=== PATIENT | female | born 1955 | race Caucasian/White ===

== ENCOUNTER → 2016-08-07 | Outpatient (CLI) | payer OTHER ==
[~2016-08-07] MED LIST: AMLO5TAB4 PO; CHOL200012 PO; CLIN150C2 PO; CYCL-259 PO; DIAZ10TA PO; ELAVIL PO; FENO145T32 PO; LEVO50TA PO; MELO15TA6 PO; METH500T7 PO; METH750T87 PO; OXYC10TA6 PO; OXYC5TAB3 PO; SIMV40TA PO; TRAM50TA2 PO
== END | disposition home or self-care (01) ==
LOC: STAR 08:45
PROVIDERS: ATTEND Orthopaedic Surgery
DX: Z01.818 Encounter for other preprocedural examination (principal); M19.011 Primary osteoarthritis, right shoulder; R79.1 Abnormal coagulation profile
CPT/HCPCS: 36415; 85025; 85610; 85730; 93005

== ENCOUNTER 2016-08-14 05:09 | Inpatient (IN) | payer OTHER ==
[2016-08-13] MEDS: FENTANYL PF 100 MCG/2ML IV PRN (09:26)
[~2016-08-14] VITALS: Ht 160 cm; Wt 72.0 kg
[2016-08-14] MEDS ORDERED: VANCOMYCIN PER PHARMACY MC STA (05:46)
[2016-08-14] MEDS ORDERED: LACTATED RINGERS 1,000 ML IV SCH (05:56)
[2016-08-14 05:57] VITALS: BP 121/73
[2016-08-14] MEDS ORDERED: VANCOMYCIN 1,200 MG in SODIUM CHLORIDE 0.9% 250 ML IV ONE (06:00)
[2016-08-14] MEDS ORDERED: BUPIVACAINE/PF 0.5% ONE (06:15)
[2016-08-14 06:16] VITALS: BP 125/83
[2016-08-14] MEDS ORDERED: CLINDAMYCIN 150 MG/ML, 6ML ONE (06:24)
[2016-08-14] MEDS ORDERED: FENTANYL PF 250 MCG/5ML ONE (06:25)
[2016-08-14] MEDS ORDERED: MIDAZOLAM 1 MG/ML, 2ML ONE (06:25)
[2016-08-14] MEDS ORDERED: SODIUM CHLORIDE 0.9% IVPB ONE (06:30)
[2016-08-14] MEDS ORDERED: DESMOPRESSIN IVPB ONE (06:30)
[2016-08-14] MEDS: D5%-0.45% NACL 1,000 ML IV SCH ×3 (06:49→23:26)
[2016-08-14] MEDS ORDERED: PROPOFOL 10 MG/ML, 20ML ONE (06:50)
[2016-08-14] MEDS ORDERED: GLYCOPYRROLATE 0.2MG/1ML ONE (06:50)
[2016-08-14] MEDS ORDERED: NEOSTIGMINE 1 MG/ML, 10ML ONE (06:50)
[2016-08-14] MEDS ORDERED: ONDANSETRON 2MG/ML, 2ML ONE (06:50)
[2016-08-14] MEDS ORDERED: ROCURONIUM 10 MG/ML ONE (06:50)
[2016-08-14] MEDS ORDERED: EPHEDRINE 50 MG/ML, 1ML ONE (06:50)
[2016-08-14] MEDS ORDERED: METOCLOPRAMIDE 5 MG/ML, 2ML ONE (06:50)
[2016-08-14] MEDS ORDERED: DEXAMETHASONE 4 MG/ML, 1ML ONE (06:50)
[2016-08-14] MEDS ORDERED: PHENYLEPHRINE 10 MG/ML ONE (06:50)
[2016-08-14] MEDS ORDERED: MAGNESIUM HYDROXIDE 8%, 30ML UDC PO PRN (07:00)
[2016-08-14] MEDS ORDERED: ONDANSETRON 2MG/ML, 2ML IV PRN (07:00)
[2016-08-14] MEDS ORDERED: SENNA/DOCUSATE TABLET PO PRN (07:00)
[2016-08-14] MEDS ORDERED: ALUMINUM/MAG/SIMETHICONE 30 ML UDC PO PRN (07:00)
[2016-08-14] MEDS ORDERED: ACETAMINOPHEN 325 MG TABLET PO PRN ×2 (07:00→09:00)
[2016-08-14] MEDS ORDERED: BISACODYL 10 MG SUPP PR PRN (07:00)
[2016-08-14] MEDS: OXYcodone 5 MG/5 ML ORAL.SOL UDC PO SCH ×4 (07:00→21:48)
[2016-08-14] MEDS ORDERED: PROMETHAZINE 25 MG/ML, 1ML IV PRN (09:00)
[2016-08-14] MEDS ORDERED: OXYcodone 5 MG/5 ML ORAL.SOL UDC PO PRN (09:00)
[2016-08-14] MEDS ORDERED: HYDROmorphone 1 MG/ML, 1ML IV PRN (09:00)
[2016-08-14] MEDS ORDERED: OXYcodone 5 MG/5 ML ORAL.SOL UDC ONE (09:04)
[2016-08-14] MEDS ORDERED: FENTANYL PF 100 MCG/2ML ONE (09:04)
[2016-08-14] MEDS ORDERED: KETOROLAC 30 MG/1 ML ONE (09:04)
[2016-08-14] MEDS: FENTANYL PF 100 MCG/2ML IV PRN (09:08)
[2016-08-14] MEDS ORDERED: ACETAMINOPHEN 325 MG TABLET ONE (09:28)
[2016-08-14] MEDS ORDERED: ACETAMINOPHEN 650 MG/20.3 ML UDC ONE (09:28)
[2016-08-14] MEDS ORDERED: HYDROmorphone 2 MG/ML, 1ML ONE (09:29)
[2016-08-14] MEDS ORDERED: KETOROLAC 30 MG/1 ML IVPush SCH (10:00)
[2016-08-14 10:30] VITALS: BP 90/57
[2016-08-14] MEDS ORDERED: KETOROLAC 30 MG/1 ML IVPush ONE (10:48)
[2016-08-14] MEDS ORDERED: LEVOTHYROXINE MC SCH (11:00)
[2016-08-14] MEDS: TRAMADOL MC SCH ×3 (11:30→21:45)
[2016-08-14] MEDS: DOCUSATE 100 MG CAPSULE PO SCH ×2 (12:00→21:48)
[2016-08-14 14:49] VITALS: BP 98/56
[2016-08-14] MEDS ORDERED: VANCOMYCIN PMX 1GM/200ML 200 ML IVPB ONE (18:00)
[2016-08-14] MEDS: morphine SULFATE 10 MG/ML, 1ML IV PRN (18:44)
[2016-08-14 18:45] VITALS: BP 112/60
[2016-08-14] MEDS ORDERED: LEVOTHYROXINE 50 MCG TABLET PO SCH (21:00)
[2016-08-14] MEDS ORDERED: AMLODIPINE 5 MG TABLET PO SCH (21:00)
[2016-08-14] MEDS ORDERED: CHOLECALCIFEROL 1,000 UNIT TABLET PO SCH (21:00)
[2016-08-14] MEDS ORDERED: FENOFIBRATE 145 MG TABLET PO SCH (21:00)
[2016-08-14] MEDS ORDERED: SIMVASTATIN 40 MG TABLET PO SCH (21:00)
[2016-08-15] VITALS: BP 103/64
[2016-08-15] MEDS: OXYcodone 5 MG/5 ML ORAL.SOL UDC PO SCH ×3 (01:50→09:30)
[2016-08-15] MEDS: morphine SULFATE 10 MG/ML, 1ML IV PRN ×5 (01:53→07:15)
[2016-08-15 04:26] VITALS: BP 101/64
[2016-08-15] MEDS: TRAMADOL MC SCH (05:45)
[2016-08-15] MEDS: D5%-0.45% NACL 1,000 ML IV SCH (07:16)
[2016-08-15 07:32] VITALS: BP 109/70
[2016-08-15] MEDS ORDERED: FENTANYL PF 100 MCG/2ML ONE (08:33)
[2016-08-15] MEDS ORDERED: BUPIVACAINE/PF 0.5% ONE (08:33)
[2016-08-15] MEDS: DOCUSATE 100 MG CAPSULE PO SCH (10:00)
== END 2016-08-15 14:13 | disposition home or self-care (01) | DRG 483 ==
LOC: ORIP 05:09 → 4NOR 10:26 → DCLOUNGE 08-15 13:13
PROVIDERS: ADMIT Orthopaedic Surgery; ATTEND Orthopaedic Surgery
PROC: 3E0T3BZ Introduction of Anesthetic Agent into Peripheral Nerves and Plexi, Percutaneous Approach (ICD-10-PCS; 2016-08-14)
PROC: 0RRJ0JZ Replacement of Right Shoulder Joint with Synthetic Substitute, Open Approach (ICD-10-PCS; principal; 2016-08-14 07:00)
DX: M19.011 Primary osteoarthritis, right shoulder (principal); M65.9 Synovitis and tenosynovitis, unspecified; I10 Essential (primary) hypertension; E03.9 Hypothyroidism, unspecified; E78.00 Pure hypercholesterolemia, unspecified; Z96.652 Presence of left artificial knee joint; Z88.6 Allergy status to analgesic agent; Z88.5 Allergy status to narcotic agent; Z88.0 Allergy status to penicillin; Z88.2 Allergy status to sulfonamides; Z79.899 Other long term (current) drug therapy; Z98.1 Arthrodesis status; Z90.89 Acquired absence of other organs; Z90.49 Acquired absence of other specified parts of digestive tract; Z82.61 Family history of arthritis; Z88.1 Allergy status to other antibiotic agents
CPT/HCPCS: 36415; 86850; 86900; C1713; C1776; J1100; J1170; J1885; J2250; J2405; J2597; J2704; J2710; J3010; J3370; J3490; J2270; J2370; J2765; J7050; J7120; P9035

== ENCOUNTER → 2017-01-13 | Outpatient (CLI) | payer OTHER ==
[~2017-01-13] MED LIST changes: -CHOL200012 PO; +CHOL200074 PO
== END | disposition home or self-care (01) ==
LOC: CFH 12:17
PROVIDERS: ATTEND Registered Nurse Registered Nurse First Assistant
DX: M51.26 Other intervertebral disc displacement, lumbar region (principal); M51.27 Other intervertebral disc displacement, lumbosacral region; M48.061 Spinal stenosis, lumbar region without neurogenic claudication; M48.07 Spinal stenosis, lumbosacral region; Z98.1 Arthrodesis status; Z98.890 Other specified postprocedural states
CPT/HCPCS: 72148

== ENCOUNTER → 2018-06-14 | Outpatient (CLI) | payer OTHER ==
[2018-06-14 09:57] LABS: BASOPHILS # (AUTO) 0.05 x10^3/uL (0-0.1); BASOPHILS % (AUTO) 1 % (0-1); EOSINOPHILS # (AUTO) 0.18 x10^3/uL (0-0.4); EOSINOPHILS % (AUTO) 3 % (1-7); LYMPHOCYTES % (AUTO) 36 % (22-44); MD NO; MEAN CORPUSCULAR HEMOGLOBIN 30.6 pg (27.0-34.8); MEAN CORPUSCULAR VOLUME 92.8 fL (80-100); MEAN PLATELET VOLUME 6.8 fL (7.4-10.4); MONOCYTES # (AUTO) 0.55 x10^3/uL (0.2-0.8); MONOCYTES % (AUTO) 9 % (2-9); NEUTROPHILS # (AUTO) 3.09 x10^3/uL (1.8-6.8); NEUTROPHILS % (AUTO) 51 % (42-75); PLATELET COUNT 437 x10^3/uL (130-400); RED BLOOD COUNT 4.21 x10^6/uL (3.82-5.3); RED CELL DISTRIBUTION WIDTH 13.5 % (9.6-15.2)
[2018-06-14 10:03] LABS: PARTIAL THROMBOPLASTIN TIME 30 Seconds (25-31)
[2018-06-14 11:06] LABS: ADP CARTRIDGE 122 SECONDS (64-123); PLATELET (PFA) 437 x10^3/uL (130-400)
== END | disposition home or self-care (01) ==
LOC: LAB 09:36
PROVIDERS: ATTEND Internal Medicine Hematology & Oncology
DX: D69.9 Hemorrhagic condition, unspecified (principal); R79.1 Abnormal coagulation profile; Z88.6 Allergy status to analgesic agent; Z88.0 Allergy status to penicillin; Z88.2 Allergy status to sulfonamides; Z88.8 Allergy status to other drugs, medicaments and biological substances
CPT/HCPCS: 36415; 85014; 85025; 85049; 85240; 85245; 85246; 85576; 85730

== ENCOUNTER → 2018-06-25 | Outpatient (CLI) | payer OTHER ==
[~2018-06-25] MED LIST changes: +COLL1POW2 PO; +MAGNESIUM PO; +SUMA50TA3 PO
[2018-06-25 11:54] LABS: BASOPHILS # (AUTO) 0.04 x10^3/uL (0-0.1); BASOPHILS % (AUTO) 1 % (0-1); EOSINOPHILS # (AUTO) 0.14 x10^3/uL (0-0.4); EOSINOPHILS % (AUTO) 3 % (1-7); LYMPHOCYTES # (AUTO) 1.73 x10^3/uL (1-3.4); LYMPHOCYTES % (AUTO) 30 % (22-44); MD NO; MEAN CORPUSCULAR HEMOGLOBIN 30.9 pg (27.0-34.8); MEAN CORPUSCULAR HGB CONC 33.5 g/dL (32.4-35.8); MEAN CORPUSCULAR VOLUME 92.1 fL (80-100); MEAN PLATELET VOLUME 6.9 fL (7.4-10.4); MONOCYTES # (AUTO) 0.39 x10^3/uL (0.2-0.8); MONOCYTES % (AUTO) 7 % (2-9); NEUTROPHILS # (AUTO) 3.43 x10^3/uL (1.8-6.8); NEUTROPHILS % (AUTO) 60 % (42-75); PLATELET COUNT 477 x10^3/uL (130-400); RED BLOOD COUNT 4.48 x10^6/uL (3.82-5.3); RED CELL DISTRIBUTION WIDTH 13.3 % (9.6-15.2)
[2018-06-25 12:04] LABS: INTERNATIONAL NORMALIZED RATIO 0.97 (0.93-1.1); PROTHROMBIN TIME 10.2 Seconds (9.6-11.5)
[2018-06-25 12:05] LABS: ALANINE AMINOTRANSFERASE 49 U/L (12-78); ANION GAP 4 mmol/L (5-15); CALCIUM 10.1 mg/dL (8.5-10.1); CHLORIDE 105 mmol/L (98-107); CREATININE 0.74 mg/dL (0.55-1.02)
[2018-06-25 12:08] LABS: ALKALINE PHOSPHATASE 134 U/L (45-117); BILIRUBIN,TOTAL 0.4 mg/dL (0.2-1.0); TOTAL PROTEIN 7.7 g/dL (6.4-8.2)
[2018-06-25 12:30] LABS: HEMOGLOBIN A1C 5.6 % (4.2-6.3)
== END | disposition home or self-care (01) ==
LOC: STAR 10:50
PROVIDERS: ATTEND Orthopaedic Surgery
DX: Z01.818 Encounter for other preprocedural examination (principal); R00.0 Tachycardia, unspecified; M16.11 Unilateral primary osteoarthritis, right hip; M70.62 Trochanteric bursitis, left hip; M51.36 Other intervertebral disc degeneration, lumbar region; M70.61 Trochanteric bursitis, right hip; M54.16 Radiculopathy, lumbar region; Z96.611 Presence of right artificial shoulder joint; Z96.669 Presence of unspecified artificial ankle joint
CPT/HCPCS: 36415; 80053; 83036; 85025; 85610; 85730; 87081; 93005

== ENCOUNTER 2018-07-09 06:32 | Inpatient (IN) | payer OTHER ==
[~2018-07-09] VITALS: Ht 160 cm; Wt 62.0 kg
[2018-07-09] MEDS: NS + 20MEQ KCL 1,000 ML IV SCH ×3 (06:50→20:50)
[2018-07-09] MEDS ORDERED: ONDANSETRON 2MG/ML, 2ML IV PRN ×2 (07:00→08:30)
[2018-07-09] MEDS ORDERED: SENNA/DOCUSATE TABLET PO PRN (07:00)
[2018-07-09] MEDS ORDERED: CYCLOBENZAPRINE 10 MG TABLET PO PRN (07:00)
[2018-07-09] MEDS ORDERED: ZOLPIDEM 5MG TABLET PO PRN (07:00)
[2018-07-09] MEDS ORDERED: DIPHENHYDRAMINE 50 MG CAPSULE PO PRN (07:00)
[2018-07-09] MEDS ORDERED: ACETAMINOPHEN 650 MG/20.3 ML UDC PO PRN (07:00)
[2018-07-09] MEDS ORDERED: SUMATRIPTAN 50 MG TABLET PO SCH (07:00)
[2018-07-09] MEDS ORDERED: SCOPOLAMINE PATCH, 1.5MG PATCH.TD72 TD ONE (07:00)
[2018-07-09] MEDS ORDERED: ONDANSETRON 4 MG TABLET PO PRN (07:00)
[2018-07-09] MEDS ORDERED: HYDROcodone/APAP 5/325 TABLET PO PRN (07:00)
[2018-07-09] MEDS ORDERED: MAGNESIUM HYDROXIDE 8%, 30ML UDC PO PRN (07:00)
[2018-07-09] MEDS ORDERED: BISACODYL 10 MG SUPP PR PRN (07:00)
[2018-07-09] MEDS ORDERED: LACTATED RINGERS 1,000 ML IV SCH (07:03)
[2018-07-09] MEDS ORDERED: FENTANYL PF 100 MCG/2ML ONE ×2 (07:29→10:36)
[2018-07-09] MEDS ORDERED: MIDAZOLAM 1 MG/ML, 2ML ONE (07:29)
[2018-07-09] MEDS ORDERED: VANCOMYCIN PER PHARMACY MC PRN (07:30)
[2018-07-09] MEDS ORDERED: SODIUM CHLORIDE 0.9% IV ONE (07:30)
[2018-07-09] MEDS ORDERED: ACETAMINOPHEN 500 MG TABLET PO ONE (07:30)
[2018-07-09] MEDS ORDERED: DESMOPRESSIN IV ONE (07:30)
[2018-07-09] MEDS ORDERED: GABAPENTIN 300 MG CAPSULE PO ONE (07:30)
[2018-07-09] MEDS ORDERED: VANCOMYCIN PMX 1GM/200ML 200 ML IV ONE (08:00)
[2018-07-09] MEDS ORDERED: hydrALAzine 20 MG/ML, 1ML IV PRN (08:30)
[2018-07-09] MEDS ORDERED: OXYcodone 5 MG/5 ML ORAL.SOL UDC PO PRN (08:30)
[2018-07-09] MEDS ORDERED: LORazepam 2 MG/ML, 1ML IVPush PRN (08:30)
[2018-07-09] MEDS ORDERED: METOCLOPRAMIDE 5 MG/ML, 2ML IV PRN (08:30)
[2018-07-09] MEDS ORDERED: LABETALOL 5MG/ML, 20ML IV PRN (08:30)
[2018-07-09] MEDS ORDERED: MORPHINE SULFATE 4 MG/ML, 1ML IVPush PRN (08:30)
[2018-07-09] MEDS ORDERED: MEPERIDINE/PF 25MG/0.5ML IVPush PRN (08:30)
[2018-07-09] MEDS ORDERED: ROPIvacaine/PF 0.5%, 30 ML ONE (08:33)
[2018-07-09 08:41] VITALS: BP 110/75
[2018-07-09 08:54] VITALS: BP 115/75
[2018-07-09] MEDS ORDERED: DOCUSATE 100 MG CAPSULE PO SCH (09:00)
[2018-07-09 09:01] VITALS: BP 113/74
[2018-07-09] MEDS ORDERED: ONDANSETRON 2MG/ML, 2ML ONE (09:09)
[2018-07-09] MEDS ORDERED: NEOSTIGMINE 1 MG/ML, 10ML ONE (09:09)
[2018-07-09] MEDS ORDERED: GLYCOPYRROLATE 0.2MG/1ML, 5ML ONE (09:09)
[2018-07-09] MEDS ORDERED: DEXAMETHASONE 4 MG/ML, 1ML ONE (09:09)
[2018-07-09] MEDS ORDERED: METOCLOPRAMIDE 5 MG/ML, 2ML ONE (09:09)
[2018-07-09] MEDS ORDERED: SUCCINYLCHOLINE 20 MG/ML, 10ML ONE (09:09)
[2018-07-09] MEDS ORDERED: PROPOFOL 10 MG/ML, 20ML ONE (09:09)
[2018-07-09] MEDS ORDERED: ROCURONIUM 10 MG/ML,10ML ONE (09:09)
[2018-07-09] MEDS: FENTANYL PF 100 MCG/2ML IV PRN ×2 (10:38→10:50)
[2018-07-09] MEDS: HYDROmorphone 2 MG/ML, 1ML IVPush PRN ×4 (10:44→11:30)
[2018-07-09] MEDS ORDERED: TRANEXAMIC ACID 1,000 MG in SODIUM CHLORIDE 0.9% 100 ML IV ONE (11:00)
[2018-07-09 12:24] VITALS: BP 108/68
[2018-07-09] MEDS ORDERED: DOCUSATE 100 MG CAPSULE ONE (12:44)
[2018-07-09] MEDS: OXYcodone IR 5MG TABLET PO PRN ×3 (12:47→20:49)
[2018-07-09] MEDS ORDERED: VANCOMYCIN 1,200 MG in SODIUM CHLORIDE 0.9% 250 ML IV ONE (13:00)
[2018-07-09] MEDS ORDERED: PHARMACOKINETIC MONITORING MC PRN (13:00)
[2018-07-09] MEDS ORDERED: PHARMACOKINETIC CONSULTATION MC ONE (13:00)
[2018-07-09] MEDS: CEFAZOLIN PMX 2GM/50ML 50 ML IVPB SCH ×2 (13:36→21:51)
[2018-07-09] MEDS ORDERED: ASPIRIN 81 MG TABLET EC PO SCH (18:00)
[2018-07-09 19:35] VITALS: BP 105/64
[2018-07-09] MEDS ORDERED: AMLODIPINE 5 MG TABLET PO SCH (21:00)
[2018-07-09] MEDS ORDERED: SIMVASTATIN 40 MG TABLET PO SCH (21:00)
[2018-07-09] MEDS ORDERED: FENOFIBRATE 145 MG TABLET PO SCH (21:00)
[2018-07-09] MEDS ORDERED: LEVOTHYROXINE 50 MCG TABLET PO SCH (21:00)
[2018-07-09] MEDS ORDERED: LEVOTHYROXINE 75 MCG TABLET ONE (21:42)
[2018-07-09] MEDS: DOCUSATE 100 MG CAPSULE PO SCH (21:49)
[2018-07-10 00:30] VITALS: BP 105/67
[2018-07-10] MEDS: OXYcodone IR 5MG TABLET PO PRN ×3 (01:02→09:04)
[2018-07-10 04:40] VITALS: BP 113/66
[2018-07-10] MEDS ORDERED: DEXAMETHASONE 4 MG/ML, 1ML IVPush SCH (06:00)
[2018-07-10 08:56] VITALS: BP 120/63
[2018-07-10] MEDS: DOCUSATE 100 MG CAPSULE PO SCH (09:03)
[2018-07-10 10:53] VITALS: BP 106/72
== END 2018-07-10 11:10 | disposition home or self-care (01) | DRG 470 ==
LOC: ORIP 06:34 → 4NOR 12:10
PROVIDERS: ADMIT Orthopaedic Surgery; ATTEND Orthopaedic Surgery
PROC: 30233R1 Transfusion of Nonautologous Platelets into Peripheral Vein, Percutaneous Approach (ICD-10-PCS; 2018-07-09)
PROC: 0SR906A Replacement of Right Hip Joint with Oxidized Zirconium on Polyethylene Synthetic Substitute, Uncemented, Open Approach (ICD-10-PCS; principal; 2018-07-09 09:30)
DX: M16.11 Unilateral primary osteoarthritis, right hip (principal); I10 Essential (primary) hypertension; E78.5 Hyperlipidemia, unspecified; E03.9 Hypothyroidism, unspecified; G43.909 Migraine, unspecified, not intractable, without status migrainosus; Z88.0 Allergy status to penicillin; Z88.2 Allergy status to sulfonamides; Z88.6 Allergy status to analgesic agent; Z91.040 Latex allergy status
CPT/HCPCS: 36415; 72170; 73501; 76000; J3490; 85014; 85018; 86850; 86900; C1713; G0378; J0690; J1100; J1170; J2250; J2405; J2597; J2704; J2710; J2795; J3010; J3480; C1776; J0330; J2765; P9035

== ENCOUNTER 2018-08-04 14:05 | Emergency (ER) | payer OTHER ==
[~2018-08-04] VITALS: Ht 157.5 cm; Wt 57.2 kg
[2018-08-04] MEDS ORDERED: ONDANSETRON 2MG/ML, 2ML ONE (14:08)
[2018-08-04] MEDS ORDERED: HYDROmorphone 1 MG/ML, 1ML VIAL ONE (14:08)
--- NOTE | 2018-08-04 14:20 | NUR ---
PT BIB [facility] FOR RIGHT HIP PAIN AFTER SHE TURNED AND THEN FELL TO THE GROUND. PT HAD A RIGHT HIP REPLACEMENT 1 MONTH AGO. PT PLACED IN ROOM AND PLACED ON BP, CARDIAC AND CONT. PULSE OXIMETER. RIGHT PEDAL PULSE 2+ AND STRONG. PT WITH DEFORMITY TO RIGHT HIP. PT CRYING AND IN DISTRESS. MD AT BEDSIDE.
--- NOTE | 2018-08-04 14:25 | NUR ---
PT TAKEN TO RADIOLOGY
[2018-08-04] MEDS ORDERED: ONDANSETRON 2MG/ML, 2ML IVPush ONE (14:30)
[2018-08-04] MEDS ORDERED: HYDROmorphone 1 MG/ML, 1ML INJ IVPush PRN (14:30)
--- NOTE | 2018-08-04 14:43 | NUR ---
LATE ENTRY: CONSENT SIGNED FOR RIGHT REDUCTION BY PROCEDURAL SEDATION.
[2018-08-04] MEDS ORDERED: FENTANYL PF 100 MCG/2ML ONE (14:47)
[2018-08-04] MEDS ORDERED: ETOMIDATE 20 MG/10 ML ONE (14:47)
--- NOTE | 2018-08-04 14:58 | NUR ---
2NDTIME OUT FOR PROCEDURAL SEDATION DOCUMENTED WITH MD AND RN.
[2018-08-04] MEDS ORDERED: FENTANYL PF 100 MCG/2ML IVPush ONE (15:00)
[2018-08-04] MEDS ORDERED: ETOMIDATE 20 MG/10 ML IVPush ONE (15:00)
--- NOTE | 2018-08-04 15:00 | NUR ---
SEE PROCEDURAL SEDATION NOTES.
--- NOTE | 2018-08-04 15:20 | NUR ---
PT ALERT AND TALKING WITH FAMILY.
--- NOTE | 2018-08-04 16:01 | NUR ---
PT ALERT AND ORIENTED. AWAITING ORTHOPEDIST TO CALL BACK.
[2018-08-04 16:05] VITALS: BP 110/66
--- NOTE | 2018-08-04 16:06 | NUR ---
MD AT BEDSIDE TALKING WITH PT. PT WILL BE DISCHARGED HOME
== END 2018-08-04 16:46 | disposition home or self-care (01) ==
LOC: ED 16:35
DX: T84.020A Dislocation of internal right hip prosthesis, initial encounter (principal); S73.014A Posterior dislocation of right hip, initial encounter; W19.XXXA Unspecified fall, initial encounter; Z96.641 Presence of right artificial hip joint; Y93.89 Activity, other specified; Y92.009 Unspecified place in unspecified non-institutional (private) residence as the place of occurrence of the external cause; Y99.8 Other external cause status
CPT/HCPCS: 27265; 73501; 73502; 96374; 96375; 99285; J1170; J2405; J3010

== ENCOUNTER → 2019-02-10 | Outpatient (CLI) | payer OTHER ==
[~2019-02-10] MED LIST changes: +LEVO75TA PO
== END | disposition home or self-care (01) ==
LOC: STAR 12:40
PROVIDERS: ATTEND Internal Medicine Gastroenterology
DX: Z12.11 Encounter for screening for malignant neoplasm of colon (principal); Z88.8 Allergy status to other drugs, medicaments and biological substances
CPT/HCPCS: 93005

== ENCOUNTER 2019-02-18 07:18 | Day surgery (SDC) | payer OTHER ==
[~2019-02-18] VITALS: Ht 160 cm; Wt 62.3 kg
[2019-02-18] MEDS ORDERED: DESMOPRESSIN IVPB ONE (08:00)
[2019-02-18] MEDS ORDERED: SODIUM CHLORIDE 0.9% IVPB ONE (08:00)
[2019-02-18] MEDS ORDERED: SODIUM CHLORIDE 0.9% 1,000 ML IV SCH (08:05)
[2019-02-18 08:18] VITALS: BP 123/74
[2019-02-18] MEDS ORDERED: LACTATED RINGERS 1,000 ML IV SCH (08:39)
[2019-02-18] MEDS ORDERED: MIDAZOLAM 1 MG/ML, 2ML ONE (09:02)
[2019-02-18] MEDS ORDERED: FENTANYL PF 100 MCG/2ML ONE (09:02)
[2019-02-18] MEDS ORDERED: HYDROmorphone 2 MG/ML, 1ML IVPush PRN (09:30)
[2019-02-18] MEDS ORDERED: LABETALOL 5MG/ML, 20ML IV PRN (09:30)
[2019-02-18] MEDS ORDERED: PROMETHAZINE 25 MG/ML, 1ML IV PRN (09:30)
[2019-02-18] MEDS ORDERED: hydrALAzine 20 MG/ML, 1ML IV PRN (09:30)
[2019-02-18] MEDS ORDERED: ONDANSETRON 2MG/ML, 2ML IV PRN (09:30)
[2019-02-18] MEDS ORDERED: OXYcodone 5 MG/5 ML ORAL.SOL UDC PO PRN (09:30)
[2019-02-18] MEDS ORDERED: FENTANYL PF 100 MCG/2ML IV PRN (09:30)
[2019-02-18] MEDS ORDERED: ACETAMINOPHEN 325 MG TABLET PO PRN (09:30)
[2019-02-18 09:40] VITALS: BP 100/59
[2019-02-18] MEDS ORDERED: ONDANSETRON 2MG/ML, 2ML ONE (09:57)
[2019-02-18] MEDS ORDERED: PROPOFOL 10 MG/ML, 20ML ONE (09:57)
== END 2019-02-18 11:45 | disposition home or self-care (01) ==
LOC: OUT 07:18
PROVIDERS: ATTEND Internal Medicine Gastroenterology
DX: Z12.11 Encounter for screening for malignant neoplasm of colon (principal); K57.30 Diverticulosis of large intestine without perforation or abscess without bleeding; K64.8 Other hemorrhoids; K63.89 Other specified diseases of intestine; I10 Essential (primary) hypertension; Z72.89 Other problems related to lifestyle; Z91.040 Latex allergy status
CPT/HCPCS: 36415; 45378; J2250; J2405; J2597; J2704; J3010; J7120; P9035

== ENCOUNTER → 2019-04-25 | Outpatient (CLI) | payer OTHER | END | disposition home or self-care (01) | LOC: STAR 13:52 | PROVIDERS: ATTEND Orthopaedic Surgery | DX: Z01.818 Encounter for other preprocedural examination (principal); M75.121 Complete rotator cuff tear or rupture of right shoulder, not specified as traumatic; Z96.611 Presence of right artificial shoulder joint | CPT/HCPCS: 87081 ==

== ENCOUNTER 2019-05-05 07:08 | Day surgery (SDC) | payer OTHER ==
[~2019-05-05] VITALS: Ht 160 cm; Wt 65.6 kg
[~2019-05-05 07:08] MED LIST changes: +LIDOCAINE/PF 1%-EPI 1:200K, 30 ML ONE
[2019-05-05] MEDS ORDERED: DESMOPRESSIN IVPB ONE (08:00)
[2019-05-05] MEDS ORDERED: SODIUM CHLORIDE 0.9% IVPB ONE (08:00)
[2019-05-05] MEDS ORDERED: BUPIVACAINE LIPOSOME/PF 10ML INFIL STA (08:02)
[2019-05-05] MEDS ORDERED: FENTANYL PF 100 MCG/2ML ONE (08:23)
[2019-05-05] MEDS ORDERED: MIDAZOLAM 1 MG/ML, 2ML ONE (08:23)
[2019-05-05 08:25] VITALS: BP 120/78
[2019-05-05] MEDS ORDERED: CLINDAMYCIN 150 MG/ML, 6ML ONE (08:28)
[2019-05-05 08:31] VITALS: BP 108/63
[2019-05-05 08:38] VITALS: BP 118/73
[2019-05-05] MEDS ORDERED: VASOPRESSIN 20 UNIT/ML, 1ML ONE (10:24)
[2019-05-05] MEDS ORDERED: DEXAMETHASONE 4 MG/ML, 1ML ONE ×2 (10:24→11:46)
[2019-05-05] MEDS ORDERED: NEOSTIGMINE 1 MG/ML, 10ML ONE ×2 (10:24→11:46)
[2019-05-05] MEDS ORDERED: SUCCINYLCHOLINE 20 MG/ML, 10ML ONE ×2 (10:24→11:46)
[2019-05-05] MEDS ORDERED: ONDANSETRON 2MG/ML, 2ML ONE ×2 (10:24→11:46)
[2019-05-05] MEDS ORDERED: ROCURONIUM 10MG/ML,5ML ONE ×2 (10:24→11:46)
[2019-05-05] MEDS ORDERED: GLYCOPYRROLATE 0.2MG/1ML, 5ML ONE ×2 (10:24→11:46)
[2019-05-05] MEDS ORDERED: CEFAZOLIN 1,000 MG ONE ×2 (10:24→11:46)
[2019-05-05] MEDS ORDERED: PROPOFOL 10 MG/ML, 20ML ONE ×2 (10:24→11:46)
[2019-05-05] MEDS ORDERED: hydrALAzine 20 MG/ML, 1ML IV PRN (10:30)
[2019-05-05] MEDS ORDERED: HYDROmorphone 2 MG/ML, 1ML IVPush PRN (10:30)
[2019-05-05] MEDS ORDERED: LABETALOL 5MG/ML, 20ML IV PRN (10:30)
[2019-05-05] MEDS ORDERED: MEPERIDINE/PF 25MG/0.5ML IVPush PRN (10:30)
[2019-05-05] MEDS ORDERED: KETOROLAC 30 MG/1 ML IV PRN (10:30)
[2019-05-05] MEDS ORDERED: DIAZEPAM 5 MG/ML, 2ML IVPush PRN (10:30)
[2019-05-05] MEDS ORDERED: ALBUTEROL SULFATE 2.5 MG/3 ML NPPB PRN (10:30)
[2019-05-05] MEDS ORDERED: PROMETHAZINE 25 MG/ML, 1ML IV PRN (10:30)
[2019-05-05] MEDS ORDERED: OXYcodone 5 MG/5 ML ORAL.SOL UDC PO PRN (10:30)
[2019-05-05] MEDS ORDERED: FENTANYL PF 100 MCG/2ML IV PRN (10:30)
[2019-05-05] MEDS ORDERED: ACETAMINOPHEN 325 MG TABLET PO PRN (10:30)
[2019-05-05] MEDS ORDERED: MEPERIDINE/PF 25MG/ML,1ML ONE (12:06)
== END 2019-05-05 13:55 | disposition home or self-care (01) ==
LOC: OUT 07:08
PROVIDERS: ATTEND Orthopaedic Surgery
DX: M65.811 Other synovitis and tenosynovitis, right shoulder (principal); M24.011 Loose body in right shoulder; M75.41 Impingement syndrome of right shoulder; M75.51 Bursitis of right shoulder; I10 Essential (primary) hypertension; E78.5 Hyperlipidemia, unspecified; E03.9 Hypothyroidism, unspecified; Z79.890 Hormone replacement therapy; Z79.1 Long term (current) use of non-steroidal anti-inflammatories (NSAID); Z79.899 Other long term (current) drug therapy; Z88.0 Allergy status to penicillin; Z88.2 Allergy status to sulfonamides; Z88.5 Allergy status to narcotic agent; Z96.611 Presence of right artificial shoulder joint; Z90.49 Acquired absence of other specified parts of digestive tract; Z90.710 Acquired absence of both cervix and uterus; Z98.890 Other specified postprocedural states
CPT/HCPCS: 29823; 29826; 36415; 64415; 86850; 86900; J0330; J0690; J1100; J2175; J2250; J2405; J2597; J2704; J2710; J3010; J3490; P9035

== ENCOUNTER 2020-12-04 12:58 | Outpatient (CLI) | payer OTHER ==
[~2020-12-04 12:58] MED LIST changes: -CYCL-259 PO; +CYCL10TA2 PO; -LIDOCAINE/PF 1%-EPI 1:200K, 30 ML ONE; +METH-639 PO; -METH500T7 PO; -OXYC5TAB3 PO; +OXYC5TAB98 PO
[2020-12-04] MEDS ORDERED: LEVO50TA PO (14:01)
[2020-12-04] MEDS ORDERED: TRAM50TA2 PO (14:01)
[2020-12-04 14:49] LABS: BASOPHILS % (AUTO) 1 % (0-1); EOSINOPHILS % (AUTO) 2 % (1-7); LYMPHOCYTES % (AUTO) 36 % (22-44); MEAN CORPUSCULAR HEMOGLOBIN 30.7 pg (27.0-34.8); MEAN CORPUSCULAR HGB CONC 33.8 g/dL (32.4-35.8); MONOCYTES % (AUTO) 8 % (2-9); NEUTROPHILS % (AUTO) 53 % (42-75); PLATELET COUNT 382 x10^3/uL (130-400); RED CELL DISTRIBUTION WIDTH 13.8 % (9.6-15.2)
[2020-12-04 14:55] LABS: INTERNATIONAL NORMALIZED RATIO 0.98 (0.93-1.1); PROTHROMBIN TIME 10.5 Seconds (9.6-11.5)
[2020-12-04 14:56] LABS: ANION GAP 6 mmol/L (5-15); CALCIUM 9.8 mg/dL (8.5-10.1); CHLORIDE 106 mmol/L (98-107); CREATININE 0.81 mg/dL (0.55-1.02)
[2020-12-04 15:14] LABS: MICROSCOPIC INDICATED
== END 2020-12-04 23:59 | disposition home or self-care (01) ==
LOC: STAR 12:58
PROVIDERS: ATTEND Neurological Surgery
DX: Z01.818 Encounter for other preprocedural examination (principal); M43.16 Spondylolisthesis, lumbar region; R94.31 Abnormal electrocardiogram [ECG] [EKG]
CPT/HCPCS: 36415; 71046; 80048; 81001; 85025; 85610; 85730; 87077; 87086; 87186; 93005

== ENCOUNTER 2020-12-04 12:59 | Outpatient (CLI) | payer OTHER ==
[2020-12-04] MEDS ORDERED: LEVO50TA PO (14:01)
[2020-12-04] MEDS ORDERED: TRAM50TA2 PO (14:01)
== END 2020-12-04 23:59 | disposition home or self-care (01) ==
LOC: CFH 12:59
PROVIDERS: ATTEND Neurological Surgery
DX: M51.37 Other intervertebral disc degeneration, lumbosacral region (principal); M47.817 Spondylosis without myelopathy or radiculopathy, lumbosacral region; M43.16 Spondylolisthesis, lumbar region
CPT/HCPCS: 72131

== ENCOUNTER → 2020-12-10 | Outpatient (CLI) | payer OTHER ==
[~2020-12-10] VITALS: Ht 160 cm; Wt 61.8 kg
[2020-12-10 10:16] LABS: MICROSCOPIC AUTO
== END | disposition home or self-care (01) ==
LOC: STAR 08:00 → EDSTATUS 12-11 09:00
PROVIDERS: ATTEND Neurological Surgery
DX: Z01.812 Encounter for preprocedural laboratory examination (principal); Z20.822 Contact with and (suspected) exposure to COVID-19; M43.16 Spondylolisthesis, lumbar region
CPT/HCPCS: 81001; 87077; 87086; 87186; U0003; U0005